=== PATIENT | female | born 1980 | race Caucasian/White ===

== ENCOUNTER → 2016-10-07 | Outpatient (REF) | payer OTHER | LOC: M LAB REF 12:06 | PROVIDERS: ATTEND Physician Assistant | DX: J02.9 Acute pharyngitis, unspecified (principal) ==

== ENCOUNTER → 2017-01-30 | Outpatient (CLI) | payer OTHER ==
[2017-01-30 08:54] LABS: BASO % 0.7 % (0.0-1.0); EOS # 0.1 K/mm3 (0.0-0.50); EOS % 2.1 % (0.0-3.0); LARGE UNSTAINED CELL # 0.1 K/mm3 (0.0-0.4); LARGE UNSTAINED CELL % 1.3 % (0.0-4.0); LYMPH # 1.5 K/mm3 (1.5-4.5); LYMPH % 28.8 % (24.0-44.0); MEAN CORPUSCULAR HEMOGLOBIN 29.7 pg (27.0-33.0); MEAN CORPUSCULAR HGB CONC 33.6 g/dl (32.0-36.5); MEAN CORPUSCULAR VOLUME 88.3 fl (80.0-96.0); MONO # 0.2 K/mm3 (0.0-0.8); MONO % 4.8 % (0.0-5.0); NEUTROPHILS # 3.1 K/mm3 (1.8-7.7); NEUTROPHILS % 62.3 % (36.0-66.0); PLATELET COUNT, AUTOMATED 325 k/mm3 (150-450); RED CELL DISTRIBUTION WIDTH 13.5 % (11.5-14.5); WHITE BLOOD COUNT 4.9 K/mm3 (4.0-10.0)
[2017-01-30 09:23] LABS: ALBUMIN 3.6 GM/DL (3.2-5.2); ALBUMIN/GLOBULIN RATIO 0.86 (1.00-1.93); ALKALINE PHOSPHATASE 79 U/L (45-117); ALT/SGPT 22 U/L (12-78); ANION GAP 3 MEQ/L (8-16); AST/SGOT 10 U/L (15-37); BILIRUBIN,TOTAL 0.4 MG/DL (0.2-1.0); BLOOD UREA NITROGEN 11 MG/DL (7-18); CALCIUM LEVEL 9.2 MG/DL (8.5-10.1); CARBON DIOXIDE LEVEL 31 MEQ/L (21-32); CHLORIDE LEVEL 106 MEQ/L (98-107); FREE T4 1.09 NG/DL (0.76-1.46); GLOMERULAR FILTRATION RATE > 60.0 (>60); GLUCOSE, FASTING 94 MG/DL (70-105); POTASSIUM SERUM 4.4 MEQ/L (3.5-5.1); SODIUM LEVEL 140 MEQ/L (136-145); TOTAL PROTEIN 7.8 GM/DL (6.4-8.2)
== END ==
LOC: M LAB 07:53
PROVIDERS: ATTEND Family Medicine
DX: R53.83 Other fatigue (principal); L65.9 Nonscarring hair loss, unspecified; E66.09 Other obesity due to excess calories

== ENCOUNTER → 2017-02-12 | Outpatient (CLI) | payer OTHER ==
[2017-02-12 14:12] LABS: LUTEINIZING HORMONE 4.5 mIU/mL
[2017-02-12 14:13] LABS: FOLLICLE STIMULATING HORMONE 3.1 mIU/mL
== END ==
LOC: M SMT 10:15
PROVIDERS: ATTEND Physician Assistant Medical
DX: L65.9 Nonscarring hair loss, unspecified (principal)

== ENCOUNTER → 2017-03-26 | Outpatient (CLI) | payer OTHER ==
--- NOTE | 2017-03-30 11:46 | SLEEPHOME ---
DATE OF STUDY: 03/26/2017 ORDERING PROVIDER: Kristina Moses home sleep testing was performed due to concern for the obstructive sleep apnea syndrome. 9 hours and 59 minutes of data were reviewed. There were 7 hours and 37 minutes marked as time in bed. During the interval marked time in bed, there were 28 respiratory events identified of 10 seconds in duration or greater for a respiratory event index of 3.7. The events were more frequent in the supine position. They were primarily obstructive in nature. Baseline pulse rate 64. Pulse rate ranged 47-102. Baseline saturation 93.8%. The lowest oxygen saturation 89%. Testing was performed in both the supine and nonsupine positions. IMPRESSION: Borderline home sleep testing with some respiratory events but a respiratory event index within normal limits at 3.7. RECOMMENDATION: Given the patient's symptoms, position retraining for avoidance of the supine posture is recommended. If symptoms persist, referral for formal sleep evaluation and in-laboratory nocturnal polysomnography would be a more sensitive means of identifying mild disease.
== END ==
LOC: M SLEEP HO 03-25 08:02
PROVIDERS: ATTEND Physician Assistant Medical
DX: R40.0 Somnolence (principal)

== ENCOUNTER → 2017-11-27 | Outpatient (REF) | payer OTHER ==
[2017-11-27 11:33] LABS: ALBUMIN 3.6 GM/DL (3.2-5.2); ALBUMIN/GLOBULIN RATIO 0.95 (1.00-1.93); ALKALINE PHOSPHATASE 74 U/L (45-117); ALT/SGPT 17 U/L (12-78); ANION GAP 4 MEQ/L (8-16); AST/SGOT 13 U/L (7-37); BILIRUBIN,TOTAL 0.3 MG/DL (0.2-1.0); BLOOD UREA NITROGEN 9 MG/DL (7-18); CALCIUM LEVEL 8.9 MG/DL (8.5-10.1); CARBON DIOXIDE LEVEL 29 MEQ/L (21-32); CHLORIDE LEVEL 108 MEQ/L (98-107); CREATININE FOR GFR 0.64 MG/DL (0.55-1.30); GLOMERULAR FILTRATION RATE > 60.0 (>60); GLUCOSE, FASTING 89 MG/DL (70-100); POTASSIUM SERUM 4.5 MEQ/L (3.5-5.1); SODIUM LEVEL 141 MEQ/L (136-145); TOTAL PROTEIN 7.4 GM/DL (6.4-8.2)
[2017-11-28 08:53] LABS: TOTAL 25(OH) VITAMIN D 37.8 NG/ML (30.0-100.0)
== END ==
LOC: M LABDRAW1 10:51
DX: E55.9 Vitamin D deficiency, unspecified (principal); L70.0 Acne vulgaris

== ENCOUNTER → 2017-12-12 | Outpatient (REF) ==
[2017-12-15 11:45] LABS: RUBELLA IgG QUALITATIVE IMMUNE (IMMUNE)
[2017-12-16 08:11] LABS: RUBEOLA IgG ANTIBODY <25.0 AU/mL (Immune >29.9)
== END ==
LOC: M LAB REF 13:00
DX: Z00.00 Encounter for general adult medical examination without abnormal findings (principal)

== ENCOUNTER → 2018-03-02 | Outpatient (CLI) | payer OTHER | LOC: M SMT 10:47 | DX: R05 Cough (principal) | CPT/HCPCS: 71046 ==

== ENCOUNTER 2019-01-07 09:31 | Emergency (ER) | payer OTHER ==
[~2019-01-07] VITALS: Ht 157.5 cm; Wt 86.4 kg
[2019-01-07] MEDS ORDERED: BUPR150T3 (09:41)
[2019-01-07] MEDS ORDERED: ESCI20TA (09:41)
--- NOTE | 2019-01-07 10:11 | REP ---
CT Head without contrast HISTORY: Paresthesias COMPARISON: None There is no intraparenchymal hemorrhage, acute infarct, mass or midline shift. The ventricular system is normal in appearance. There is no extra cerebral collection. There is no fracture. The visualized sinuses are clear. IMPRESSION: There is no intracranial lesion. Electronically Signed by Zoltan Bella MD 01/07/2019 10:02 A
[2019-01-07 10:21] LABS: BASO # 0.1 10^3/uL (0.0-0.2); BASO % 0.7 % (0.0-1.0); EOS # 0.1 10^3/uL (0.0-0.50); EOS % 1.5 % (0.0-3.0); HEMATOCRIT 42.4 % (36.0-47.0); HEMOGLOBIN 14.3 g/dl (12.0-15.5); LYMPH # 2.2 10^3/uL (1.5-4.5); LYMPH % 26.1 % (24.0-44.0); MEAN CORPUSCULAR HEMOGLOBIN 28.3 pg (27.0-33.0); MEAN CORPUSCULAR HGB CONC 33.7 g/dl (32.0-36.5); MEAN CORPUSCULAR VOLUME 83.8 fl (80.0-96.0); MONO # 0.6 10^3/uL (0.0-0.8); MONO % 7.5 % (0.0-5.0); NEUTROPHILS # 5.4 10^3/uL (1.8-7.7); PLATELET COUNT, AUTOMATED 423 10^3/uL (150-450); RED BLOOD COUNT 5.06 10^6/uL (4.00-5.40); WHITE BLOOD COUNT 8.4 10^3/uL (4.0-10.0)
--- NOTE | 2019-01-07 10:26 | REP ---
Chest one-view HISTORY: Infarction Comparison: 03/02/2018 The lungs are clear. The heart is normal in size. The pulmonary vasculature is normal in appearance. Impression: No acute disease. Electronically Signed by Zoltan Bella MD 01/07/2019 10:17 A
[2019-01-07] MEDS ORDERED: NS 1,000 ML IV SCH (10:30)
[2019-01-07 10:31] LABS: PROTHROMBIN TIME 13.3 SECONDS (12.1-14.4)
[2019-01-07 10:32] LABS: PARTIAL THROMBOPLASTIN TIME 28.1 SECONDS (25.4-37.6)
[2019-01-07 10:51] LABS: BLOOD UREA NITROGEN 6 MG/DL (7-18); CALCIUM LEVEL 9.5 MG/DL (8.5-10.1); CARBON DIOXIDE LEVEL 25 MEQ/L (21-32); CHLORIDE LEVEL 104 MEQ/L (98-107); CK-MB VALUE MASS < 1.0 NG/ML (<3.6); CPK CREATINE PHOSPHOKINASE 48 U/L (26-192); CREATININE FOR GFR 0.73 MG/DL (0.55-1.30); GLOMERULAR FILTRATION RATE > 60.0 (>60); GLUCOSE, FASTING 125 MG/DL (70-100); MB/CK RELATIVE INDEX 2.08 (< OR =4); POTASSIUM SERUM 4.5 MEQ/L (3.5-5.1); SODIUM LEVEL 137 MEQ/L (136-145); TROPONIN I < 0.02 NG/ML (< 0.10)
[2019-01-07] MEDS ORDERED: LORazepam 2 MG/ML VIAL (J2060) IV STA (10:53)
[2019-01-07 11:06] VITALS: BP 145/72
--- NOTE | 2019-01-08 05:50 | ECGEPIP ---
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
== END 2019-01-07 11:10 | disposition short-term general hospital (02) ==
LOC: M ED 09:31
DX: R20.9 Unspecified disturbances of skin sensation (principal); R47.9 Unspecified speech disturbances; R29.702 NIHSS score 2; R00.1 Bradycardia, unspecified; I45.10 Unspecified right bundle-branch block; R51 Headache; F41.9 Anxiety disorder, unspecified; F32.9 Major depressive disorder, single episode, unspecified; Z79.899 Other long term (current) drug therapy; F17.200 Nicotine dependence, unspecified, uncomplicated; Z88.0 Allergy status to penicillin
CPT/HCPCS: 70450; 71045; 80048; 82550; 82553; 84484; 85025; 85610; 85730; 86850; 86900; 86901; 93005; 93041; 94760; 96374; 99291; J2060

== ENCOUNTER 2019-01-12 09:17 | Inpatient (IN) | payer OTHER ==
[~2019-01-12] VITALS: Ht 157.5 cm; Wt 93.3 kg
[~2019-01-12 09:17] MED LIST: BUPR150T3; ESCI20TA
[2019-01-12 15:00] VITALS: BP 160/84
[2019-01-12] MEDS ORDERED: COLA100C5 PO (15:02)
[2019-01-12] MEDS ORDERED: ESCI20TA PO (15:02)
[2019-01-12] MEDS ORDERED: ACET1TAB55 PO (15:02)
[2019-01-12] MEDS ORDERED: GNP8.6TA PO (15:02)
[2019-01-12] MEDS ORDERED: ASPI81TA85 PO (15:02)
[2019-01-12] MEDS ORDERED: MIRA3350 PO (15:02)
[2019-01-12] MEDS ORDERED: D3 U5000 PO (15:02)
[2019-01-12] MEDS ORDERED: PLAV1TAB2 PO (15:02)
[2019-01-12] MEDS ORDERED: ENOX40IN3 SC (15:02)
[2019-01-12] MEDS ORDERED: ONDA4TAB6 PO (15:03)
[2019-01-12] MEDS ORDERED: MECL12.575 PO (15:03)
[2019-01-12] MEDS ORDERED: amLODIPine 5 MG TAB PO ONE (16:00)
[2019-01-12] MEDS ORDERED: BISACODYL 10 MG SUPP PR PRN (16:15)
[2019-01-12] MEDS ORDERED: ALBUTEROL 90 MCG/ACT 8GM HFA INHALER INH PRN (16:15)
[2019-01-12] MEDS ORDERED: MAALOX 30 ML SUSP *UDC PO PRN (16:15)
[2019-01-12] MEDS ORDERED: ACETAMINOPHEN TAB 650MG DOSE (2X325MG) PO PRN (16:15)
--- NOTE | 2019-01-12 17:04 | CR.PDOC ---
General Date of Consultation: Jan 12, 2019 Referring Provider: AARON MONTES MD Attending Physician: YADY GUSTAFSON MD Consultation REASON FOR CONSULTATION/CHIEF COMPLAINT: Medical management HISTORY OF PRESENT ILLNESS: Patient is a 38-year-old female, past medical history significant for hyperlipidemia, nicotine dependence, obesity, who sustained a stroke 6 days ago. Patient reports she was at her child's primary care physician's office when she had sudden onset of left-sided weakness, nausea, vomiting, left facial paresthesia, he environmental health physician, blurred vision. She was immediately rushed to the emergency room here way. CT without contrast was negative. Patient was sent to [facility] with CTA was completed. CT was negative and subsequently had an MRI which showed brainstem stroke. She did not receive TPA since she was out of TPA window. She was put on heparin, aspirin and Plavix and 2 days later states she was able to see out of her left eye and top. On assessment, she denies any symptoms other than left-sided weakness. She denies chills, fever, chest pain, shortness of breath. ALLERGIES: Penicillin HOME MEDICATIONS: Please see below. PAST MEDICAL HISTORY: 1. Obesity 2. Nicotine dependence PAST SURGICAL HISTORY: 1. Right oophorectomy 2. Tubal ligation FAMILY HISTORY: Patient denies any family history SOCIAL HISTORY: Smokes quarter pack cigarettes a day, denies alcohol or polysubstance abuse Marital status: with kids REVIEW OF SYSTEMS:A 10 point pertinent review of systems was completed, negative except as stated in the history of presenting illness. PHYSICAL EXAMINATION: GENERAL: Obese SKIN : Warm, dry intact HEENT: Atraumatic, normocephalic,, moist mucous membrane CARDIOVASCULAR: Regular rate and rhythm, S1S2, no JVD, no edema, distal pulses + and palpable RESP: CTAB, no accessory muscle use noted ABDOMEN: BS+ non distended non tender MS: no joint deformities NEURO: Alert and oriented x 3, CN2-12 grossly intact PSYCH: no anxiety or agitation, appropriate mood and affect. LABORATORY DATA: Please see below. ASSESSMENT/PLAN: 1. Acute left medulla CVA -Continue aspirin, Plavix, start on statin -Blood pressure is elevated without prior diagnosis of hypertension -Monitor blood pressure to target systolic range less than 140 2. Elevated blood pressure -Without prior diagnosis of hypertension -Start on low-dose DAYANARA inhibitor given recent acute CVA 3. Obesity -Has been discussed with patient. -Therapeutic lifestyle changes 4. Nicotine dependence -Patient has been counseled 5. DVT prophylaxis -Lovenox daily Vital Signs/I&O Vital Signs Date Time Temp Pulse Resp B/P (MAP) Pulse Ox O2 Delivery O2 Flow Rate FiO2 01/12/19 16:01 86 160/84 01/12/19 15:00 98.4 18 95 Allergies Coded Allergies: Penicillins (Verified Allergy, Unknown, hives, 01/07/19) Home Medications Scheduled Aspirin (Aspir 81) 81 Mg Tablet.dr, 81 MG PO DAILY, (Reported) Cholecalciferol (Vitamin D3) (Vitamin D3) 5,000 Unit Capsule, 5,000 UNIT PO DAILY, (Reported) Clopidogrel Bisulfate (Plavix) 75 Mg Tablet, 75 MG PO DAILY, (Reported) Docusate Sodium (Colace) 100 Mg Capsule, 100 MG PO BID, (Reported) Enoxaparin Sodium (Enoxaparin Sodium) 40 Mg/0.4 Ml Syringe, 40 MG SC DAILY, (Reported) Escitalopram Oxalate (Escitalopram Oxalate) 20 Mg Tablet, 20 MG PO QHS, (Reported) Polyethylene Glycol 3350 (Miralax) 119 Gm Powder, 34 GRAM PO DAILY, (Reported) dissolve in water Sennosides (Senna Lax) 8.6 Mg Tablet, 2 TAB PO DAILY, (Reported) Scheduled PRN Acetaminophen (Acetaminophen) 325 Mg Tablet, 650 MG PO Q6H PRN for PAIN, (Reported) Meclizine HCl (Meclizine HCl) 12.5 Mg Tablet, 12.5 MG PO TID PRN for DIZZINESS, (Reported) Ondansetron (Ondansetron Odt) 4 Mg Tab.rapdis, 4 MG PO Q8H PRN for NAUSEA, (Reported) MALINI FRYE Jan 12, 2019 17:04
[2019-01-12 20:00] VITALS: BP 133/62
[2019-01-12] MEDS: MECLIZINE 12.5 MG TAB PO SCH (20:08)
[2019-01-12] MEDS: SENNA 8.6 MG TAB (SENOKOT) PO SCH (20:08)
[2019-01-12] MEDS: GABAPENTIN 100 MG CAP PO SCH (20:09)
[2019-01-12] MEDS: DOCUSATE SODIUM 100 MG CAP PO SCH (20:09)
[2019-01-12] MEDS: ATORVASTATIN 20 MG TAB PO SCH (20:09)
[2019-01-13 06:00] VITALS: BP 120/68
[2019-01-13 07:00] LABS: BASO # 0.1 10^3/uL (0.0-0.2); BASO % 0.7 % (0.0-1.0); EOS # 0.2 10^3/uL (0.0-0.50); EOS % 2.7 % (0.0-3.0); HEMATOCRIT 40.9 % (36.0-47.0); HEMOGLOBIN 13.4 g/dl (12.0-15.5); LYMPH # 2.9 10^3/uL (1.5-4.5); LYMPH % 41.6 % (24.0-44.0); MEAN CORPUSCULAR HEMOGLOBIN 28.5 pg (27.0-33.0); MEAN CORPUSCULAR HGB CONC 32.8 g/dl (32.0-36.5); MEAN CORPUSCULAR VOLUME 86.8 fl (80.0-96.0); MONO # 0.6 10^3/uL (0.0-0.8); MONO % 8.4 % (0.0-5.0); NEUTROPHILS # 3.3 10^3/uL (1.8-7.7); NEUTROPHILS % 46.5 % (36.0-66.0); PLATELET COUNT, AUTOMATED 325 10^3/uL (150-450); RED BLOOD COUNT 4.71 10^6/uL (4.00-5.40)
[2019-01-13 07:23] LABS: ALBUMIN 2.9 GM/DL (3.2-5.2); ALT/SGPT 34 U/L (12-78); BILIRUBIN,TOTAL 0.2 MG/DL (0.2-1.0); BLOOD UREA NITROGEN 8 MG/DL (7-18); CALCIUM LEVEL 8.9 MG/DL (8.5-10.1); CARBON DIOXIDE LEVEL 30 MEQ/L (21-32); CHLORIDE LEVEL 107 MEQ/L (98-107); CREATININE FOR GFR 0.74 MG/DL (0.55-1.30); GLOMERULAR FILTRATION RATE > 60.0 (>60); GLUCOSE, FASTING 97 MG/DL (70-100); POTASSIUM SERUM 4.3 MEQ/L (3.5-5.1); SODIUM LEVEL 142 MEQ/L (136-145); TOTAL PROTEIN 6.4 GM/DL (6.4-8.2)
[2019-01-13] MEDS: MECLIZINE 12.5 MG TAB PO SCH ×3 (08:32→20:59)
[2019-01-13] MEDS: ENOXAPARIN 40 MG/0.4 ML SYRINGE (J1650) SC SCH (08:32)
[2019-01-13] MEDS: FERROUS GLUCONATE 324 MG TAB PO SCH (08:33)
[2019-01-13] MEDS: ASPIRIN 81 MG CHEW TABLET PO SCH (08:33)
[2019-01-13] MEDS: LISINOPRIL 5 MG TAB PO SCH (08:33)
[2019-01-13] MEDS: CLOPIDOGREL 75 MG TAB PO SCH ×2 (08:33→10:03)
[2019-01-13] MEDS: DOCUSATE SODIUM 100 MG CAP PO SCH ×2 (08:33→20:59)
[2019-01-13] MEDS: PANTOPRAZOLE 40MG TAB (PROTONIX) PO SCH (08:33)
[2019-01-13] MEDS: VITAMIN D 1,000 INTERNATIONAL UNITS TABLET PO SCH (08:33)
[2019-01-13] MEDS: ESCITALOPRAM OXALATE 10 MG TAB (LEXAPRO) PO SCH (08:33)
[2019-01-13] MEDS: LIDOCAINE 5% (LIDODERM) PATCH TD SCH (08:34)
[2019-01-13 14:00] VITALS: BP 134/81
--- NOTE | 2019-01-13 15:09 | HPEPDOC ---
Sign Builder Note DATE OF ADMISSION: Jan 12, 2019 at 14:20 SOURCE OF ADMISSION INFORMATION: [facility] records and patient CHIEF COMPLAINT: left lateral medullary stroke HISTORY OF PRESENT ILLNESS: 38F with no significant pmh who developed left sided paresthesias, dysarthria, vertigo, and diplopia on 01/07/19 presented initially to [facility] ED where CTH was negative and she was transferred to [facility] for further work up. Upon arrival she was noted to have left-martin gaze, dysmetria, hiccupping, and paresthesias of the LLE. CTH was negative and MRI on 01/08/19 was read as negative with neurology notes remarking on varying areas of stroke, but I personally verbally confirmed with neuro-radiology at [facility] what there was one lesion in the left lateral medullary that was not PICA in origin, but a small perforating branch. ECHO confirmed a PFO and Dopplers were negative for DVT. She was found to have elevated cholesterol levels and hyper coagulopathy work-up was ordered. She was started on Meclizine for dizziness, Aspirin and Plavix to be taken together for 3 weeks total then to continue on with just Aspirin, and a statin. She was found to have gait and ADL impairments below her baseline level of function and deemed medically appropriate for discharge to ARU. Upon arrival patient reports persistent patchy numbness and tingling in both her left upper and lower extremity. She denies dysphagia and reports her dysarthria improved. She reports at least 3 months of neck pain and headaches she feels start in the back of her head and neck and radiate to her eyes. REVIEW OF SYSTEMS: The following is a completed review of systems and has been reviewed. Review of systems otherwise unremarkable. PAIN: Patient self reports neck pain EYES: Negative for vision loss or double vision EARS, NOSE, & THROAT: denies dysphagia CARDIOVASCULAR: denies chest pain or shortness of breath PULMONARY:Negative. Denies shortness of breath GASTROINTESTINAL: denies diarrhea/constipation GENITOURINARY: Negative for dysuria MUSCULOSKELETAL: +neck pain NEUROLOGICAL: left sided ptosis and miosis, paresthesias in both left UE and LE HEMATOLOGICAL: Negative SKIN: intact PSYCHIATRIC: +anxious All other review of systems found to be negative. PAST MEDICAL HISTORY: as per HPI PAST SURGICAL HISTORY: oophorectomy for teratoma removal ALLERGIES: Please see below. MEDICATIONS: Please see below. SOCIAL HISTORY: Denies illicit drug use, occasional social smoker, occasional ETOH, lives with children and DIET: low salt PHYSICAL EXAMINATION: VITAL SIGNS: Please see below. GENERAL: Pleasant and cooperative. No acute distress. HEENT: PERRL. Extraocular movements intact. Clear conjunctiva, no nystagmus, +left ptosis and miosis CARDIOVASCULAR: Regular rate and rhythm. No murmurs, rubs, or gallops LUNGS: Clear to auscultation bilaterally. No wheezes. No rhonchi ABDOMEN: Soft, nontender, nondistended. Positive bowel sounds. Normal active bowel sounds NEUROLOGICAL: Alert and oriented times three. Cranial nerves II through XII grossly intact. Sensation grossly intact except diminished to light touch left face in CNV1-3 distribution, left D1 and tip of D2, left lateral upper arm, left anterior thigh -no dysarthria, no aphasia -gait not examined EXTREMITIES: 5\5 strength bilateral upper extremities (no pronator drift) 5\5 strength right lower extremity 5/5 strength in left lower extremity +TTP cervical paraspinals, +trigger point with ocular radiation with palpation of bilateral superior nuchal ridge SKIN: intact IMAGING: Imaging documentation personally reviewed by record FUNCTIONAL STATUS: Premorbid: Independent with all activities of daily life as well as mobility On Admission: Min assist for ambulation with RW, toileting min assist, lower body dressing min assist GOALS: Mod-I with cane or without AD ambulating, stairs, fall recover, dynamic balance, Mod-I for toileting, dressing, bathing, medical optimization, assess for DMEs, caregiver training, modifiable risk factor education ASSESSMENT:38-year-old F with no significant pmh who presents status post left lateral medullary infarct. PLAN: 1. Rehab: PT, OT, assess for DMEs, JUSTICE COURT JUDGE for cognition and swallow eval 2. 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 Cardio: HLD and HTN- c/u meds, medicine consulted to follow 4. Resp: encourage incentive spirometry 5. GI ppx: protonix, optimize bowel meds 6. DVT ppx: lovenox 7. : monitor PVRs 8. Psych: c/u Lexapro for anxiety 9. Dispo: TBD POST ADMISSION PHYSICIAN EVALUATION: Medical and functional status: Description of medical status, medical assessment: As above. Rehabilitation diagnosis and current and prior cold morbid medical conditions as above. Risk of complications and plans to mitigate them as above. Description of functional status current status is as above. Prior status as above. Status compared to preadmission: There are no clinically significant differences between the patient's current status and the information described on the pread mission screening document. Treatment plan anticipated: Treatment plan is as described above. Required disciplines including physical therapy, occupational therapy, others as noted above Intensity of services: 3 hours a day, 6 days a week. Special considerations: There are no specific special or safety considerations that would likely preclude immediate implementation of an intensive rehabilitation program or subsequently influence the plan of care. ATTESTATION: Considering all the information above, it is my best judgment that this patient requires intensive rehabilitation therapy as described above and an inpatient hospital environment due to the complexity of nursing, medical, and rehabilitation needs required by the patient. Furthermore, this patient can reasonably be expected to participate in an benefit from an inpatient rehabilitation stay with an interdisciplinary team approach to the delivery of rehabilitation care under the direction and supervision of rehabilitation physician PROGNOSIS: Excellent ESTIMATED LENGTH OF STAY:8-10 days. PROJECTED DISCHARGE DESTINATION: Home with family support and any durable medical equipment required to increase functional safety and mobility TIME SPENT COUNSELING AND COORDINATING INITIAL CARE: Greater than 70 minutes. Vital Signs Vital Sign - Last 24 Hours 01/12/19 01/12/19 01/12/19 01/13/19 15:00 16:01 20:00 06:00 Temp 98.4 98.9 97.4 Pulse 86 86 71 57 Resp 18 17 17 B/P (MAP) 160/84 (109) 160/84 133/62 (85) 120/68 (85) Pulse Ox 95 96 96 01/13/19 08:33 B/P (MAP) 120/68 Laboratory Data CBC/BMP Laboratory Tests 01/13/19 06:34 Red Blood Count 4.71, Mean Corpuscular Volume 86.8, Mean Corpuscular Hemoglobin 28.5, Mean Corpuscular Hemoglobin Concent 32.8, Red Cell Distribution Width 14.6 H, Neutrophils (%) (Auto) 46.5, Lymphocytes (%) (Auto) 41.6, Monocytes (%) (Auto) 8.4 H, Eosinophils (%) (Auto) 2.7, Basophils (%) (Auto) 0.7, Neutrophils # (Auto) 3.3, Lymphocytes # (Auto) 2.9, Monocytes # (Auto) 0.6, Eosinophils # (Auto) 0.2, Basophils # (Auto) 0.1, Calcium Level 8.9, Aspartate Amino Transf (AST/SGOT) 13, Alanine Aminotransferase (ALT/SGPT) 34, Alkaline Phosphatase 64, Total Bilirubin 0.2, Total Protein 6.4, Albumin 2.9 L Labs 24H Laboratory Tests 2 01/13/19 06:34: Immature Granulocyte % (Auto) 0.1, White Blood Count 7.0, Red Blood Count 4.71, Hemoglobin 13.4, Hematocrit 40.9, Mean Corpuscular Volume 86.8, Mean Corpuscular Hemoglobin 28.5, Mean Corpuscular Hemoglobin Concent 32.8, Red Cell Distribution Width 14.6H, Platelet Count 325, Neutrophils (%) (Auto) 46.5, Lymphocytes (%) (Auto) 41.6, Monocytes (%) (Auto) 8.4H, Eosinophils (%) (Auto) 2.7, Basophils (%) (Auto) 0.7, Neutrophils # (Auto) 3.3, Lymphocytes # (Auto) 2.9, Monocytes # (Auto) 0.6, Eosinophils # (Auto) 0.2, Basophils # (Auto) 0.1, Nucleated Red Blood Cells % (auto) 0.0, Anion Gap 5L, Glomerular Filtration Rate > 60.0, Blood Urea Nitrogen 8, Creatinine 0.74, Sodium Level 142, Potassium Level 4.3, Chloride Level 107, Carbon Dioxide Level 30, Calcium Level 8.9, Aspartate Amino Transf (AST/SGOT) 13, Alanine Aminotransferase (ALT/SGPT) 34, Alkaline Phosphatase 64, Total Bilirubin 0.2, Total Protein 6.4, Albumin 2.9L, Albumin/Globulin Ratio 0.83L Home Medications Scheduled Aspirin (Aspir 81) 81 Mg Tablet.dr, 81 MG PO DAILY, (Reported) Cholecalciferol (Vitamin D3) (Vitamin D3) 5,000 Unit Capsule, 5,000 UNIT PO DAILY, (Reported) Clopidogrel Bisulfate (Plavix) 75 Mg Tablet, 75 MG PO DAILY, (Reported) Docusate Sodium (Colace) 100 Mg Capsule, 100 MG PO BID, (Reported) Enoxaparin Sodium (Enoxaparin Sodium) 40 Mg/0.4 Ml Syringe, 40 MG SC DAILY, (Reported) Escitalopram Oxalate (Escitalopram Oxalate) 20 Mg Tablet, 20 MG PO QHS, (Reported) Polyethylene Glycol 3350 (Miralax) 119 Gm Powder, 34 GRAM PO DAILY, (Reported) dissolve in water Sennosides (Senna Lax) 8.6 Mg Tablet, 2 TAB PO DAILY, (Reported) Scheduled PRN Acetaminophen (Acetaminophen) 325 Mg Tablet, 650 MG PO Q6H PRN for PAIN, ( Reported) Meclizine HCl (Meclizine HCl) 12.5 Mg Tablet, 12.5 MG PO TID PRN for DIZZINESS, (Reported) Ondansetron (Ondansetron Odt) 4 Mg Tab.rapdis, 4 MG PO Q8H PRN for NAUSEA, (Reported) Allergies Coded Allergies: Penicillins (Verified Allergy, Unknown, hives, 01/07/19) A-FIB/CHADSVASC A-FIB History Current/History of A-Fib/PAF?: No AARON MONTES MD Jan 13, 2019 15:09
--- NOTE | 2019-01-13 15:09 | IPNPDOC ---
PM&R Progress Note DATE OF SERVICE: Jan 13, 2019 Deputy Brand Inspector Progress Note Subjective: Patient reporting she is feeling well, denies having a headache or dizziness, and is eager to return hoe as soon as possible. PHYSICAL EXAMINATION: VITAL SIGNS: Please see below. GENERAL: Pleasant and cooperative. No acute distress. HEENT: PERRL. Extraocular movements intact. Clear conjunctiva, no nystagmus, +left ptosis and miosis CARDIOVASCULAR: Regular rate and rhythm. No murmurs, rubs, or gallops LUNGS: Clear to auscultation bilaterally. No wheezes. No rhonchi ABDOMEN: Soft, nontender, nondistended. Positive bowel sounds. Normal active bowel sounds NEUROLOGICAL: Alert and oriented times three. Cranial nerves II through XII grossly intact. Sensation grossly intact except diminished to light touch left face in CNV1-3 distribution, left D1 and tip of D2, left lateral upper arm, left anterior thigh -no dysarthria, no aphasia -gait decreased step length, mildly ataxic EXTREMITIES: 5\5 strength bilateral upper extremities (no pronator drift) 5\5 strength right lower extremity 5/5 strength in left lower extremity +TTP cervical paraspinals, +trigger point with ocular radiation with palpation of bilateral superior nuchal ridge SKIN: intact ASSESSMENT:38-year-old F with no significant pmh who presents status post left lateral medullary infarct. PLAN: 1. Rehab: PT, OT, assess for DMEs, COMBINATION MACHINE TOOL OPERATOR for cognition and swallow eval- ambulating well with quad-based cane and needing some assistance without an AD for unsteadiness 2. 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 Cardio: HLD and HTN- c/u meds, medicine consulted to follow 4. Resp: encourage incentive spirometry 5. GI ppx: protonix, optimize bowel meds 6. DVT ppx: lovenox 7. : monitor PVRs 8. Psych: c/u Lexapro for anxiety 9. Dispo: 01/18/19, quickly progressing towards goals Allergies Coded Allergies: Penicillins (Verified Allergy, Unknown, hives, 01/07/19) Vital Signs Vital Signs Date Time Temp Pulse Resp B/P (MAP) Pulse Ox O2 Delivery O2 Flow Rate FiO2 01/13/19 08:33 120/68 01/13/19 06:00 97.4 57 17 96 Laboratory Data CBC/BMP Laboratory Tests 01/13/19 06:34 Red Blood Count 4.71, Mean Corpuscular Volume 86.8, Mean Corpuscular Hemoglobin 28.5, Mean Corpuscular Hemoglobin Concent 32.8, Red Cell Distribution Width 14.6 H, Neutrophils (%) (Auto) 46.5, Lymphocytes (%) (Auto) 41.6, Monocytes (%) (Auto) 8.4 H, Eosinophils (%) (Auto) 2.7, Basophils (%) (Auto) 0.7, Neutrophils # (Auto) 3.3, Lymphocytes # (Auto) 2.9, Monocytes # (Auto) 0.6, Eosinophils # (Auto) 0.2, Basophils # (Auto) 0.1, Calcium Level 8.9, Aspartate Amino Transf (AST/SGOT) 13, Alanine Aminotransferase (ALT/SGPT) 34, Alkaline Phosphatase 64, Total Bilirubin 0.2, Total Protein 6.4, Albumin 2.9 L Labs 24H Laboratory Tests 2 01/13/19 06:34: Immature Granulocyte % (Auto) 0.1, White Blood Count 7.0, Red Blood Count 4.71, Hemoglobin 13.4, Hematocrit 40.9, Mean Corpuscular Volume 86.8, Mean Corpuscular Hemoglobin 28.5, Mean Corpuscular Hemoglobin Concent 32.8, Red Cell Distribution Width 14.6H, Platelet Count 325, Neutrophils (%) (Auto) 46.5, Lymphocytes (%) (Auto) 41.6, Monocytes (%) (Auto) 8.4H, Eosinophils (%) (Auto) 2.7, Basophils (%) (Auto) 0.7, Neutrophils # (Auto) 3.3, Lymphocytes # (Auto) 2.9, Monocytes # (Auto) 0.6, Eosinophils # (Auto) 0.2, Basophils # (Auto) 0.1, Nucleated Red Blood Cells % (auto) 0.0, Anion Gap 5L, Glomerular Filtration Rate > 60.0, Blood Urea Nitrogen 8, Creatinine 0.74, Sodium Level 142, Potassium Level 4.3, Chloride Level 107, Carbon Dioxide Level 30, Calcium Level 8.9, Aspartate Amino Transf (AST/SGOT) 13, Alanine Aminotransferase (ALT/SGPT) 34, Alkaline Phosphatase 64, Total Bilirubin 0.2, Total Protein 6.4, Albumin 2.9L, Albumin/Globulin Ratio 0.83L Current Medications Current Medications Current Medications Acetaminophen (Tylenol Tab) 650 mg Q4HP PRN PO MILD PAIN (PS 1-4); Start 01/12/19 at 16:15 Al Hydrox/Mg Hydrox/Simethicone (Mylanta) 30 ml Q4HP PRN PO DYSPEPSIA; Start 01/12/19 at 16:15 Albuterol Sulfate (Proventil, Ventolin Hfa) 2 puff Q4HP PRN INH SHORTNESS OF BREATH; Start 01/12/19 at 16:15 Amlodipine Besylate (Norvasc) 2.5 mg DAILY PO ; Start 01/13/19 at 09:00; Stop 01/13/19 at 09:00; Status DC Aspirin (Aspirin Chewable) 81 mg DAILY PO Last administered on 01/13/19at 08:33; Start 01/13/19 at 09:00 Atorvastatin Calcium (Lipitor) 80 mg QHS PO Last administered on 01/12/19at 20:09; Start 01/12/19 at 21:00 Bisacodyl (Dulcolax Suppository) [address] CONSTIPATION; Start 01/12/19 at 16:15 Clopidogrel Bisulfate (PLAVix) 75 mg DAILY@1000 PO Last administered on 01/13/19at 10:03; Start 01/13/19 at 10:00 Docusate Sodium (Colace) 100 mg BID PO Last administered on 01/13/19at 08:33; Start 01/12/19 at 21:00 Enoxaparin Sodium (Lovenox) 40 mg DAILY SC Last administered on 01/13/19at 08:32; Start 01/13/19 at 09:00 Escitalopram Oxalate (Lexapro) 20 mg DAILY PO Last administered on 01/13/19 08:33; Start 01/13/19 at 09:00 Ferrous Gluconate (Fergon) 324 mg DAILY PO Last administered on 01/13/19 08:33; Start 01/13/19 at 09:00 Gabapentin (Neurontin) 200 mg QHS PO Last administered on 01/12/19 20:09; Start 01/12/19 at 21:00 Home Med (Med Rec Complete!) ASDIRECTED XX ; Start 01/12/19 at 15:15; Stop 01/12/19 at 15:15; Status DC Lidocaine (Lidoderm Patch) 1 patch DAILY TD Last administered on 01/13/19 08:34; Start 01/13/19 at 09:00 Lisinopril (Prinivil) 5 mg DAILY PO Last administered on 01/13/19 08:33; Start 01/13/19 at 09:00 Meclizine HCl (Antivert) 12.5 mg TID PO Last administered on 01/13/19 08:32; Start 01/12/19 at 21:00 Non-Formulary Medication ( See Comment Field Below ) REMOVE LIDODERM PATCH DAILY@21 XX ; Start 01/13/19 at 21:00 Pantoprazole Sodium (Protonix) 40 mg DAILY PO Last administered on 01/13/19 08:33; Start 01/13/19 at 09:00 Senna (Senokot) 1 tab QHS PO Last administered on 01/12/19 20:08; Start 01/12/19 at 21:00 Vitamin D (Vitamin D) 5,000 units DAILY PO Last administered on 01/13/19 08:33; Start 01/13/19 at 09:00 AARON MONTES MD Jan 13, 2019 15:09
--- NOTE | 2019-01-13 16:36 | NUR ---
Pt tolerates regular diet & thin liquids w/o s/sx aspiration. Recommend continue this diet as tolerated. Pt educated on HEP for oral motor exercises w/ mirror use to correct minimal tongue deviation to right. Addendum: 01/13/19 at 1637 by STEVE ASHBY [facility] Amended: Links added.
--- NOTE | 2019-01-13 16:38 | NUR ---
Pt cognitive skills fall wnl. No cognitive tx recommended at this time. Addendum: 01/13/19 at 1638 by STEVE AHSBY [facility] Amended: Links added.
[2019-01-13 20:00] VITALS: BP 118/61
[2019-01-13] MEDS: GABAPENTIN 100 MG CAP PO SCH (20:57)
[2019-01-13] MEDS: ATORVASTATIN 20 MG TAB PO SCH (20:57)
[2019-01-13] MEDS: SENNA 8.6 MG TAB (SENOKOT) PO SCH (20:59)
[2019-01-13] MEDS: **NOTE PATIENT COMMENT** MISC XX SCH (20:59)
[2019-01-14 05:27] VITALS: BP 103/52
[2019-01-14] MEDS: LISINOPRIL 5 MG TAB PO SCH (09:00)
[2019-01-14] MEDS: LIDOCAINE 5% (LIDODERM) PATCH TD SCH (09:42)
[2019-01-14] MEDS: VITAMIN D 1,000 INTERNATIONAL UNITS TABLET PO SCH (09:42)
[2019-01-14] MEDS: DOCUSATE SODIUM 100 MG CAP PO SCH ×2 (09:43→21:46)
[2019-01-14] MEDS: ESCITALOPRAM OXALATE 10 MG TAB (LEXAPRO) PO SCH (09:43)
[2019-01-14] MEDS: CLOPIDOGREL 75 MG TAB PO SCH (09:43)
[2019-01-14] MEDS: ASPIRIN 81 MG CHEW TABLET PO SCH (09:43)
[2019-01-14] MEDS: PANTOPRAZOLE 40MG TAB (PROTONIX) PO SCH (09:43)
[2019-01-14] MEDS: FERROUS GLUCONATE 324 MG TAB PO SCH (09:43)
[2019-01-14] MEDS: ENOXAPARIN 40 MG/0.4 ML SYRINGE (J1650) SC SCH (09:43)
[2019-01-14] MEDS: MECLIZINE 12.5 MG TAB PO SCH ×2 (09:43→21:46)
[2019-01-14] MEDS ORDERED: CLOP75TA2 PO (10:21)
[2019-01-14] MEDS ORDERED: LISI-542 PO (10:21)
[2019-01-14] MEDS ORDERED: ASPI81CH8 PO (10:21)
[2019-01-14] MEDS ORDERED: MECL12.575 PO (10:21)
[2019-01-14] MEDS ORDERED: ATOR1TAB21 PO (10:21)
[2019-01-14] MEDS ORDERED: PANT40TA3 PO (10:21)
[2019-01-14] MEDS ORDERED: ESCI10TA2 PO (10:21)
[2019-01-14] MEDS ORDERED: GABA-1171 PO (10:21)
--- NOTE | 2019-01-14 11:12 | IPNPDOC ---
Subjective Date Seen The patient was seen on 01/14/19. Subjective Chief Complaint/HPI No issues overnight. Vision almost completely recovered. Objective Physical Examination General Exam: Positive: Alert, Cooperative, No Acute Distress Eye Exam: Positive: Conjunctiva & lids normal ENT Exam: Positive: Atraumatic, Mucous membr. moist/pink, Pharynx Normal Neck Exam: Positive: Supple; Negative: JVD, thyromegaly Chest Exam: Positive: Clear to auscultation, Normal air movement Heart Exam: Positive: Rate Normal, Regular Rhythm, Normal S1, Normal S2; Negative: Murmurs, Rubs Abdomen Exam: Positive: Normal bowel sounds, Soft; Negative: Tenderness, Hepatospenomegaly Extremity Exam: Positive: Normal pulses; Negative: Clubbing, Cyanosis, Edema Neuro Exam: Positive: Normal Speech, Normal Tone, Other (4/5 strength on the left upper and lower extremity, 5/5 on the right. ) Assessment /Plan Assessment Acute left medulla CVA -Continue aspirin, Plavix, start on statin -Blood pressure is elevated without prior diagnosis of hypertension -Monitor blood pressure to target systolic range less than 140 Elevated blood pressure -Without prior diagnosis of hypertension -Start on low-dose DAYANARA inhibitor given recent acute CVA Obesity -Has been discussed with patient. -Therapeutic lifestyle changes Nicotine dependence -Patient has been counseled DVT prophylaxis -Lovenox daily VS, I&O, 24H, Fishbone Vital Signs/I&O Vital Signs Date Time Temp Pulse Resp B/P (MAP) Pulse Ox O2 Delivery O2 Flow Rate FiO2 01/14/19 09:00 103/52 01/14/19 05:27 97.1 53 18 97 I&O- Last 24 Hours up to 6 AM 01/14/19 06:00 Intake Total 1080 ml Output Total 0 ml Balance 1080 ml JOSE KENT MD Jan 14, 2019 11:12
[2019-01-14 14:00] VITALS: BP 113/59
[2019-01-14 15:36] VITALS: BP 103/52
--- NOTE | 2019-01-14 16:59 | IPNPDOC ---
PM&R Progress Note DATE OF SERVICE: Jan 14, 2019 [employer] Progress Note Subjective: Patient seen walking in therapy stating she feels well and believes she is getting more steady on her feet. PHYSICAL EXAMINATION: VITAL SIGNS: Please see below. GENERAL: Pleasant and cooperative. No acute distress. HEENT: PERRL. Extraocular movements intact. Clear conjunctiva, no nystagmus, +left ptosis and miosis CARDIOVASCULAR: Regular rate and rhythm. No murmurs, rubs, or gallops LUNGS: Clear to auscultation bilaterally. No wheezes. No rhonchi ABDOMEN: Soft, nontender, nondistended. Positive bowel sounds. Normal active bowel sounds NEUROLOGICAL: Alert and oriented times three. Cranial nerves II through XII grossly intact. Sensation grossly intact except diminished to light touch left face in CNV1-3 distribution, left D1 and tip of D2, left lateral upper arm, left anterior thigh -no dysarthria, no aphasia -gait decreased step length, mildly ataxic EXTREMITIES: 5\5 strength bilateral upper extremities (no pronator drift) 5\5 strength right lower extremity 5/5 strength in left lower extremity +TTP cervical paraspinals, +trigger point with ocular radiation with palpation of bilateral superior nuchal ridge SKIN: intact ASSESSMENT:38-year-old F with no significant pmh who presents status post left lateral medullary infarct. PLAN: 1. Rehab: PT, OT, assess for DMEs, FUEL TANK SEALER AND TESTER for cognition and swallow eval- ambulating well with quad-based cane and needing some assistance without an AD for unsteadiness, goal will be MOd with cane prior to discharge 2. 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 Cardio: HLD and HTN- c/u meds, medicine consulted to follow 4. Resp: encourage incentive spirometry 5. GI ppx: protonix, optimize bowel meds 6. DVT ppx: lovenox 7. : monitor PVRs 8. Psych: c/u Lexapro for anxiety 9. Dispo: 01/18/19, quickly progressing towards goals Allergies Coded Allergies: Penicillins (Verified Allergy, Unknown, hives, 01/07/19) Vital Signs Vital Signs Date Time Temp Pulse Resp B/P (MAP) Pulse Ox O2 Delivery O2 Flow Rate FiO2 01/14/19 15:36 97.1 53 18 103/52 97 Current Medications Current Medications Current Medications Acetaminophen (Tylenol Tab) 650 mg Q4HP PRN PO MILD PAIN (PS 1-4); Start 01/12/19 at 16:15 Al Hydrox/Mg Hydrox/Simethicone (Mylanta) 30 ml Q4HP PRN PO DYSPEPSIA; Start 01/12/19 at 16:15 Albuterol Sulfate (Proventil, Ventolin Hfa) 2 puff Q4HP PRN INH SHORTNESS OF BREATH; Start 01/12/19 at 16:15 Amlodipine Besylate (Norvasc) 2.5 mg DAILY PO ; Start 01/13/19 at 09:00; Stop 01/13/19 at 09:00; Status DC Aspirin (Aspirin Chewable) 81 mg DAILY PO Last administered on 01/14/19 09:43; Start 01/13/19 at 09:00 Atorvastatin Calcium (Lipitor) 80 mg QHS PO Last administered on 01/13/19at 20:57; Start 01/12/19 at 21:00 Bisacodyl (Dulcolax Suppository) 10 mg DAILYPRN PRN [place] CONSTIPATION; Start 01/12 at 16:15 Clopidogrel Bisulfate (PLAVix) 75 mg DAILY@1000 PO Last administered on 01/14/19at 09:43; Start 01/13/19 at 10:00 Docusate Sodium (Colace) 100 mg BID PO Last administered on 01/14/19at 09:43; Start 01/12/19 at 21:00 Enoxaparin Sodium (Lovenox) 40 mg DAILY SC Last administered on 01/14/19at 09:43; Start 01/13/19 at 09:00 Escitalopram Oxalate (Lexapro) 20 mg DAILY PO Last administered on 01/14/19 09:43; Start 01/13/19 at 09:00 Ferrous Gluconate (Fergon) 324 mg DAILY PO Last administered on 01/14/19 09:43; Start 01/13/19 at 09:00 Gabapentin (Neurontin) 200 mg QHS PO Last administered on 01/13/19 20:57; Start 01/12/19 at 21:00 Home Med (Med Rec Complete!) ASDIRECTED XX ; Start 01/12/19 at 15:15; Stop 01/12/19 at 15:15; Status DC Lidocaine (Lidoderm Patch) 1 patch DAILY TD Last administered on 01/14/19 09:42; Start 01/13/19 at 09:00 Lisinopril (Prinivil) 5 mg DAILY PO Last administered on 01/13/19 08:33; Start 01/13/19 at 09:00 Meclizine HCl (Antivert) 12.5 mg BID PO ; Start 01/14/19 at 21:00 Meclizine HCl (Antivert) 12.5 mg TID PO Last administered on 01/14/19 09:43; Start 01/12/19 at 21:00; Stop 01/14/19 at 12:57; Status DC Non-Formulary Medication ( See Comment Field Below ) REMOVE LIDODERM PATCH DAILY@21 XX Last administered on 01/13/19 20:59; Start 01/13/19 at 21:00 Pantoprazole Sodium (Protonix) 40 mg DAILY PO Last administered on 01/14/19 09:43; Start 01/13/19 at 09:00 Senna (Senokot) 1 tab QHS PO Last administered on 01/13/19 20:59; Start 01/12/19 at 21:00 Vitamin D (Vitamin D) 5,000 units DAILY PO Last administered on 01/14/19 09:42; Start 01/13/19 at 09:00 AARON MONTES MD Jan 14, 2019 16:59
[2019-01-14 20:00] VITALS: BP 137/64
[2019-01-14] MEDS: **NOTE PATIENT COMMENT** MISC XX SCH (21:00)
[2019-01-14] MEDS: GABAPENTIN 100 MG CAP PO SCH (21:46)
[2019-01-14] MEDS: SENNA 8.6 MG TAB (SENOKOT) PO SCH (21:46)
[2019-01-14] MEDS: ATORVASTATIN 20 MG TAB PO SCH (21:46)
[2019-01-15 05:53] VITALS: BP 121/67
[2019-01-15 07:03] LABS: HEMATOCRIT 39.7 % (36.0-47.0); HEMOGLOBIN 13.1 g/dl (12.0-15.5); MEAN CORPUSCULAR HEMOGLOBIN 29.2 pg (27.0-33.0); MEAN CORPUSCULAR VOLUME 88.6 fl (80.0-96.0); PLATELET COUNT, AUTOMATED 283 10^3/uL (150-450); RED BLOOD COUNT 4.48 10^6/uL (4.00-5.40); WHITE BLOOD COUNT 7.2 10^3/uL (4.0-10.0)
[2019-01-15] MEDS: LIDOCAINE 5% (LIDODERM) PATCH TD SCH (08:55)
[2019-01-15] MEDS: ENOXAPARIN 40 MG/0.4 ML SYRINGE (J1650) SC SCH (08:57)
[2019-01-15] MEDS: MECLIZINE 12.5 MG TAB PO SCH ×2 (08:57→20:10)
[2019-01-15] MEDS: FERROUS GLUCONATE 324 MG TAB PO SCH (08:57)
[2019-01-15] MEDS: PANTOPRAZOLE 40MG TAB (PROTONIX) PO SCH (08:57)
[2019-01-15] MEDS: ASPIRIN 81 MG CHEW TABLET PO SCH (08:58)
[2019-01-15] MEDS: CLOPIDOGREL 75 MG TAB PO SCH (08:58)
[2019-01-15] MEDS: LISINOPRIL 5 MG TAB PO SCH (08:58)
[2019-01-15] MEDS: ESCITALOPRAM OXALATE 10 MG TAB (LEXAPRO) PO SCH (08:58)
[2019-01-15] MEDS: DOCUSATE SODIUM 100 MG CAP PO SCH ×2 (08:58→20:10)
[2019-01-15] MEDS: VITAMIN D 1,000 INTERNATIONAL UNITS TABLET PO SCH (08:58)
--- NOTE | 2019-01-15 11:02 | IPNPDOC ---
Subjective Date Seen The patient was seen on 01/15/19. Subjective Chief Complaint/HPI No complaints this morning. Vision has recovered. Objective Physical Examination General Exam: Positive: Alert, Cooperative, No Acute Distress Eye Exam: Positive: PERRLA, Conjunctiva & lids normal, EOMI ENT Exam: Positive: Atraumatic, Mucous membr. moist/pink, Pharynx Normal Neck Exam: Positive: Supple; Negative: JVD, thyromegaly Chest Exam: Positive: Clear to auscultation, Normal air movement Heart Exam: Positive: Rate Normal, Regular Rhythm, Normal S1, Normal S2; Negative: Murmurs, Rubs Abdomen Exam: Positive: Normal bowel sounds, Soft; Negative: Tenderness, Hepatospenomegaly Extremity Exam: Positive: Normal pulses; Negative: Clubbing, Cyanosis, Edema Neuro Exam: Positive: Normal Speech, Normal Tone, Other (4/5 strength on the left upper and lower extremity, 5/5 on the right. ) Assessment /Plan Assessment Acute left medulla CVA - stroke in young work up sent from [facility] no reports available yet . She will be following up with Neurologist in [facility]. -Continue aspirin, Plavix, on statin -Blood pressure is elevated without prior diagnosis of hypertension -Monitor blood pressure to target systolic range less than 140 Elevated blood pressure -Without prior diagnosis of hypertension -Started on low-dose DAYANARA inhibitor given recent acute CVA Obesity -Has been discussed with patient. -Therapeutic lifestyle changes Nicotine dependence -Patient has been counseled DVT prophylaxis -Lovenox daily Plan/VTE VTE Prophylaxis Ordered?: Yes VS, I&O, 24H, Fishbone Vital Signs/I&O Vital Signs Date Time Temp Pulse Resp B/P (MAP) Pulse Ox O2 Delivery O2 Flow Rate FiO2 01/15/19 08:58 121/67 01/15/19 05:53 97.8 87 18 96 I&O- Last 24 Hours up to 6 AM 01/15/19 06:00 Intake Total 1460 ml Output Total 0 ml Balance 1460 ml Laboratory Data 24H LABS Laboratory Tests 2 01/15/19 06:49: Nucleated Red Blood Cells % (auto) 0.0 CBC/BMP Laboratory Tests 01/15/19 06:49 Red Blood Count 4.48, Mean Corpuscular Volume 88.6, Mean Corpuscular Hemoglobin 29.2, Mean Corpuscular Hemoglobin Concent 33.0, Red Cell Distribution Width 14.7 H JOSE KENT MD Jan 15, 2019 11:02
--- NOTE | 2019-01-15 11:13 | IPNPDOC ---
PM&R Progress Note DATE OF SERVICE: Jan 15, 2019 [employer] Progress Note Subjective: Patient seen in her room stating she continues to feel betetr and that her left arm paresthesias were relieved by stretching in therapy. She was tuaght how to do chin tucks and shoulder rolls. PHYSICAL EXAMINATION: VITAL SIGNS: Please see below. GENERAL: Pleasant and cooperative. No acute distress. HEENT: PERRL. Extraocular movements intact. Clear conjunctiva, no nystagmus, +left ptosis and miosis CARDIOVASCULAR: Regular rate and rhythm. No murmurs, rubs, or gallops LUNGS: Clear to auscultation bilaterally. No wheezes. No rhonchi ABDOMEN: Soft, nontender, nondistended. Positive bowel sounds. Normal active bowel sounds NEUROLOGICAL: Alert and oriented times three. Cranial nerves II through XII grossly intact. Sensation grossly intact except diminished to light touch left face in CNV1-3 distribution, left D1 and tip of D2, left lateral upper arm, left anterior thigh -no dysarthria, no aphasia -gait decreased step length, mildly ataxic EXTREMITIES: 5\5 strength bilateral upper extremities (no pronator drift) 5\5 strength right lower extremity 5/5 strength in left lower extremity +TTP cervical paraspinals, +trigger point with ocular radiation with palpation of bilateral superior nuchal ridge SKIN: intact ASSESSMENT:38-year-old F with no significant pmh who presents status post left lateral medullary infarct. PLAN: 1. Rehab: PT, OT, assess for DMEs, YARD RIGGER for cognition and swallow eval- ambulating well with quad-based cane and needing some assistance without an AD for unsteadiness, goal will be MOd with cane prior to discharge- room privileges today with cane 2. 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 Cardio: HLD and HTN- c/u meds, medicine consulted to follow 4. Resp: encourage incentive spirometry 5. GI ppx: protonix, optimize bowel meds 6. DVT ppx: lovenox 7. : monitor PVRs 8. Psych: c/u Lexapro for anxiety 9. Dispo: 01/18/19, quickly progressing towards goals Allergies Coded Allergies: Penicillins (Verified Allergy, Unknown, hives, 01/07/19) Vital Signs Vital Signs Date Time Temp Pulse Resp B/P (MAP) Pulse Ox O2 Delivery O2 Flow Rate FiO2 01/15/19 08:58 121/67 01/15/19 05:53 97.8 87 18 96 Laboratory Data CBC/BMP Laboratory Tests 01/15/19 06:49 Red Blood Count 4.48, Mean Corpuscular Volume 88.6, Mean Corpuscular Hemoglobin 29.2, Mean Corpuscular Hemoglobin Concent 33.0, Red Cell Distribution Width 14.7 H Labs 24H Laboratory Tests 2 01/15/19 06:49: Nucleated Red Blood Cells % (auto) 0.0 Current Medications Current Medications Current Medications Acetaminophen (Tylenol Tab) 650 mg Q4HP PRN PO MILD PAIN (PS 1-4) Last administered on 01/15/19at 08:57; Start 01/12/19 at 16:15 Al Hydrox/Mg Hydrox/Simethicone (Mylanta) 30 ml Q4HP PRN PO DYSPEPSIA; Start 01/12/19 at 16:15 Albuterol Sulfate (Proventil, Ventolin Hfa) 2 puff Q4HP PRN INH SHORTNESS OF BREATH; Start 01/12/19 at 16:15 Amlodipine Besylate (Norvasc) 2.5 mg DAILY PO ; Start 01/13/19 at 09:00; Stop 01/13/19 at 09:00; Status DC Aspirin (Aspirin Chewable) 81 mg DAILY PO Last administered on 01/15/19at 08:58; Start 01/13/19 at 09:00 Atorvastatin Calcium (Lipitor) 80 mg QHS PO Last administered on 01/14/19at 21:46; Start 01/12/19 at 21:00 Bisacodyl (Dulcolax Suppository) 10 mg DAILYPRN PRN [place] CONSTIPATION; Start 01/12/19 at 16:15 Clopidogrel Bisulfate (PLAVix) 75 mg DAILY@1000 PO Last administered on 01/15/19 08:58; Start 01/13/19 at 10:00 Docusate Sodium (Colace) 100 mg BID PO Last administered on 01/15/19 08:58; Start 01/12/19 at 21:00 Enoxaparin Sodium (Lovenox) 40 mg DAILY SC Last administered on 01/15/19 08:57; Start 01/13/19 at 09:00 Escitalopram Oxalate (Lexapro) 20 mg DAILY PO Last administered on 01/15/19 08:58; Start 01/13/19 at 09:00 Ferrous Gluconate (Fergon) 324 mg DAILY PO Last administered on 01/15/19 08:57; Start 01/13/19 at 09:00 Gabapentin (Neurontin) 200 mg QHS PO Last administered on 01/14/19 21:46; Start 01/12/19 at 21:00 Home Med (Med Rec Complete!) ASDIRECTED XX ; Start 01/12/19 at 15:15; Stop 01/12/19 at 15:15; Status DC Lidocaine (Lidoderm Patch) 1 patch DAILY TD Last administered on 01/15/19 08:55; Start 01/13/19 at 09:00 Lisinopril (Prinivil) 5 mg DAILY PO Last administered on 01/13/19 08:33; Start 01/13/19 at 09:00 Meclizine HCl (Antivert) 12.5 mg BID PO Last administered on 01/15/19 08:57; Start 01/14/19 at 21:00 Meclizine HCl (Antivert) 12.5 mg TID PO Last administered on 01/14/19 09:43; Start 01/12/19 at 21:00; Stop 01/14/19 at 12:57; Status DC Non-Formulary Medication ( See Comment Field Below ) REMOVE LIDODERM PATCH DAILY@21 XX Last administered on 01/14/19 21:00; Start 01/13/19 at 21:00 Pantoprazole Sodium (Protonix) 40 mg DAILY PO Last administered on 01/15/19at 08:57; Start 01/13/19 at 09:00 Senna (Senokot) 1 tab QHS PO Last administered on 01/14/19at 21:46; Start 01/12/19 at 21:00 Vitamin D (Vitamin D) 5,000 units DAILY PO Last administered on 01/15/19 08:58; Start 01/13/19 at 09:00 AARON MONTES MD Jan 15, 2019 11:13
[2019-01-15 14:00] VITALS: BP 127/64
[2019-01-15 20:00] VITALS: BP 125/89
[2019-01-15] MEDS: ATORVASTATIN 20 MG TAB PO SCH (20:10)
[2019-01-15] MEDS: SENNA 8.6 MG TAB (SENOKOT) PO SCH (20:11)
[2019-01-15] MEDS: GABAPENTIN 100 MG CAP PO SCH (20:11)
[2019-01-15] MEDS: **NOTE PATIENT COMMENT** MISC XX SCH (20:11)
[2019-01-16 06:00] VITALS: BP 127/56
[2019-01-16] MEDS: DOCUSATE SODIUM 100 MG CAP PO SCH ×2 (08:54→20:17)
[2019-01-16] MEDS: FERROUS GLUCONATE 324 MG TAB PO SCH (08:54)
[2019-01-16] MEDS: PANTOPRAZOLE 40MG TAB (PROTONIX) PO SCH (08:54)
[2019-01-16] MEDS: ENOXAPARIN 40 MG/0.4 ML SYRINGE (J1650) SC SCH (08:55)
[2019-01-16] MEDS: MECLIZINE 12.5 MG TAB PO SCH ×2 (08:55→20:16)
[2019-01-16] MEDS: ESCITALOPRAM OXALATE 10 MG TAB (LEXAPRO) PO SCH (08:55)
[2019-01-16] MEDS: CLOPIDOGREL 75 MG TAB PO SCH (08:55)
[2019-01-16] MEDS: VITAMIN D 1,000 INTERNATIONAL UNITS TABLET PO SCH (08:55)
[2019-01-16] MEDS: ASPIRIN 81 MG CHEW TABLET PO SCH (08:55)
[2019-01-16] MEDS: LISINOPRIL 5 MG TAB PO SCH (08:56)
[2019-01-16] MEDS: LIDOCAINE 5% (LIDODERM) PATCH TD SCH (08:56)
[2019-01-16 14:00] VITALS: BP 153/75
[2019-01-16 20:00] VITALS: BP 127/72
[2019-01-16] MEDS: ATORVASTATIN 20 MG TAB PO SCH (20:16)
[2019-01-16] MEDS: SENNA 8.6 MG TAB (SENOKOT) PO SCH (20:17)
[2019-01-16] MEDS: GABAPENTIN 100 MG CAP PO SCH (20:17)
[2019-01-16] MEDS: **NOTE PATIENT COMMENT** MISC XX SCH (20:17)
[2019-01-17 06:00] VITALS: BP 125/58
[2019-01-17] MEDS: LIDOCAINE 5% (LIDODERM) PATCH TD SCH (09:00)
[2019-01-17] MEDS: LISINOPRIL 5 MG TAB PO SCH (09:00)
[2019-01-17] MEDS: ENOXAPARIN 40 MG/0.4 ML SYRINGE (J1650) SC SCH (09:34)
[2019-01-17] MEDS: FERROUS GLUCONATE 324 MG TAB PO SCH (09:35)
[2019-01-17] MEDS: CLOPIDOGREL 75 MG TAB PO SCH (09:35)
[2019-01-17] MEDS: ASPIRIN 81 MG CHEW TABLET PO SCH (09:35)
[2019-01-17] MEDS: PANTOPRAZOLE 40MG TAB (PROTONIX) PO SCH (09:35)
[2019-01-17] MEDS: MECLIZINE 12.5 MG TAB PO SCH ×2 (09:35→20:07)
[2019-01-17] MEDS: VITAMIN D 1,000 INTERNATIONAL UNITS TABLET PO SCH (09:35)
[2019-01-17] MEDS: DOCUSATE SODIUM 100 MG CAP PO SCH ×2 (09:35→20:07)
[2019-01-17] MEDS: ESCITALOPRAM OXALATE 10 MG TAB (LEXAPRO) PO SCH (09:37)
--- NOTE | 2019-01-17 11:15 | IPNPDOC ---
Subjective Date Seen The patient was seen on 01/17/19. Subjective Chief Complaint/HPI stroke Events since last encounter Denies c/o. passed PT. plans for DC home in am. Skin: Denies: Rash, Lesions, Breakdown Pulmonary: Denies: Dyspnea, Cough Cardiovascular: Denies: Chest Pain, Palpitations, Orthopnea, Paroxysmal Noc. Dyspnea, Lt Headedness Gastrointestinal: Denies: Nausea, Vomiting, Abdominal Pain, Diarrhea, Constipation Genitourinary: Denies: Dysuria, Frequency, Incontinence, Retention Neurological: Denies: Weakness, Numbness, Change in speech, Confusion Objective Physical Examination General Exam: Positive: Alert, Cooperative, No Acute Distress Eye Exam: Positive: PERRLA, Conjunctiva & lids normal, EOMI ENT Exam: Positive: Atraumatic, Mucous membr. moist/pink, Pharynx Normal Neck Exam: Positive: Supple; Negative: JVD, thyromegaly Chest Exam: Positive: Clear to auscultation, Normal air movement Heart Exam: Positive: Rate Normal, Regular Rhythm, Normal S1, Normal S2; Negative: Murmurs, Rubs Abdomen Exam: Positive: Normal bowel sounds, Soft; Negative: Tenderness, Hepatospenomegaly Extremity Exam: Positive: Normal pulses; Negative: Clubbing, Cyanosis, Edema Neuro Exam: Positive: Normal Speech, Normal Tone, Other (4/5 strength on the left upper and lower extremity, 5/5 on the right. ) Assessment /Plan Problems (1) Stroke Status: Acute Problem Text: Acute left medulla CVA - stroke in young work up sent from [facility] no reports available yet . She will be following up with Neurologist in [facility]. -Continue aspirin, Plavix, on statin -Blood pressure is elevated without prior diagnosis of hypertension -Monitor blood pressure to target systolic range less than 140 Elevated blood pressure -Without prior diagnosis of hypertension -Started on low-dose DAYANARA inhibitor given recent acute CVA Obesity -Has been discussed with patient. -Therapeutic lifestyle changes Nicotine dependence -Patient has been counseled DVT prophylaxis -Lovenox daily (2) HLD (hyperlipidemia) Plan/VTE VTE Prophylaxis Ordered?: Yes VS, I&O, 24H, Fishbone Vital Signs/I&O Vital Signs Date Time Temp Pulse Resp B/P (MAP) Pulse Ox O2 Delivery O2 Flow Rate FiO2 01/17/19 09:00 125/58 01/17/19 06:00 97.2 62 17 94 I&O- Last 24 Hours up to 6 AM 01/17/19 06:00 Intake Total 1440 ml Balance 1440 ml Rain Londono [facility] Jan 17, 2019 11:15
[2019-01-17 14:00] VITALS: BP 127/59
[2019-01-17 20:00] VITALS: BP 129/77
[2019-01-17] MEDS: SENNA 8.6 MG TAB (SENOKOT) PO SCH (20:07)
[2019-01-17] MEDS: ATORVASTATIN 20 MG TAB PO SCH (20:07)
[2019-01-17] MEDS: GABAPENTIN 100 MG CAP PO SCH (20:07)
[2019-01-17] MEDS: **NOTE PATIENT COMMENT** MISC XX SCH (20:08)
[2019-01-18 06:00] VITALS: BP 110/67
[2019-01-18 06:18] LABS: HEMATOCRIT 38.1 % (36.0-47.0); HEMOGLOBIN 12.5 g/dl (12.0-15.5); MEAN CORPUSCULAR HEMOGLOBIN 29.2 pg (27.0-33.0); MEAN CORPUSCULAR HGB CONC 32.8 g/dl (32.0-36.5); PLATELET COUNT, AUTOMATED 301 10^3/uL (150-450); RED BLOOD COUNT 4.28 10^6/uL (4.00-5.40); WHITE BLOOD COUNT 8.3 10^3/uL (4.0-10.0)
[2019-01-18 09:00] VITALS: BP 110/67
[2019-01-18] MEDS: LISINOPRIL 5 MG TAB PO SCH (09:00)
[2019-01-18] MEDS: DOCUSATE SODIUM 100 MG CAP PO SCH (09:00)
[2019-01-18] MEDS: LIDOCAINE 5% (LIDODERM) PATCH TD SCH (09:00)
[2019-01-18] MEDS: ASPIRIN 81 MG CHEW TABLET PO SCH (09:20)
[2019-01-18] MEDS: MECLIZINE 12.5 MG TAB PO SCH (09:21)
[2019-01-18] MEDS: ESCITALOPRAM OXALATE 10 MG TAB (LEXAPRO) PO SCH (09:21)
[2019-01-18] MEDS: VITAMIN D 1,000 INTERNATIONAL UNITS TABLET PO SCH (09:21)
[2019-01-18] MEDS: FERROUS GLUCONATE 324 MG TAB PO SCH (09:22)
[2019-01-18] MEDS: CLOPIDOGREL 75 MG TAB PO SCH (09:22)
[2019-01-18] MEDS: ENOXAPARIN 40 MG/0.4 ML SYRINGE (J1650) SC SCH (09:22)
[2019-01-18] MEDS: PANTOPRAZOLE 40MG TAB (PROTONIX) PO SCH (09:22)
== END 2019-01-18 13:35 | disposition home or self-care (01) | DRG 57 ==
LOC: M PM&R 14:20
PROVIDERS: ADMIT Physical Medicine & Rehabilitation; ATTEND Physical Medicine & Rehabilitation
DX: I69.352 Hemiplegia and hemiparesis following cerebral infarction affecting left dominant side (principal); I69.322 Dysarthria following cerebral infarction; H53.2 Diplopia; E78.5 Hyperlipidemia, unspecified; F17.210 Nicotine dependence, cigarettes, uncomplicated; E66.9 Obesity, unspecified; Z88.0 Allergy status to penicillin; Z79.899 Other long term (current) drug therapy; Z79.82 Long term (current) use of aspirin; I10 Essential (primary) hypertension; R42 Dizziness and giddiness

== ENCOUNTER 2019-02-04 14:30 | Outpatient (RCR) | payer OTHER ==
[~2019-02-04 14:30] MED LIST changes: +ACET1TAB55 PO; +ASPI81CH8 PO; +ASPI81TA85 PO; +ATOR1TAB21 PO; +CLOP75TA2 PO; +COLA100C5 PO; +D3 U5000 PO; +ENOX40IN3 SC; +ESCI10TA2 PO; +ESCI20TA PO; +GABA-1171 PO; +GNP8.6TA PO; +LISI-542 PO; +MECL12.575 PO; +MIRA3350 PO; +ONDA4TAB6 PO; +PANT40TA3 PO; +PLAV1TAB2 PO
== END 2019-02-07 ==
LOC: M PT 14:30
PROVIDERS: ATTEND Family Medicine
DX: I63.9 Cerebral infarction, unspecified (principal)

== ENCOUNTER 2019-02-22 14:30 | Outpatient (RCR) | payer OTHER | END 2019-03-10 | LOC: M PT 14:30 | PROVIDERS: ATTEND Family Medicine | DX: Z51.89 Encounter for other specified aftercare (principal); I63.9 Cerebral infarction, unspecified ==

== ENCOUNTER → 2020-01-07 | Outpatient (REF) | payer OTHER ==
[~2020-01-07] MED LIST changes: -MECL12.575 PO; +MECL12.589 PO
[2020-01-07 18:16] LABS: HEMATOCRIT 39.8 % (36.0-47.0); HEMOGLOBIN 12.6 g/dl (12.0-15.5); MEAN CORPUSCULAR HEMOGLOBIN 28.3 pg (27.0-33.0); MEAN CORPUSCULAR HGB CONC 31.7 g/dl (32.0-36.5); MEAN CORPUSCULAR VOLUME 89.2 fl (80.0-96.0); PLATELET COUNT, AUTOMATED 422 10^3/uL (150-450); RED BLOOD COUNT 4.46 10^6/uL (4.00-5.40); WHITE BLOOD COUNT 9.6 10^3/uL (4.0-10.0)
[2020-01-07 18:46] LABS: BLOOD UREA NITROGEN 9 MG/DL (7-18); CALCIUM LEVEL 8.5 MG/DL (8.5-10.1); CARBON DIOXIDE LEVEL 28 MEQ/L (21-32); CHLORIDE LEVEL 107 MEQ/L (98-107); CREATININE FOR GFR 0.69 MG/DL (0.55-1.30); GLOMERULAR FILTRATION RATE > 60.0 (>58); GLUCOSE, FASTING 79 MG/DL (70-100); SODIUM LEVEL 139 MEQ/L (136-145)
== END ==
LOC: M LABDRWAD 16:10
PROVIDERS: ATTEND Physician Assistant
DX: Q21.1 Atrial septal defect (principal)

== ENCOUNTER → 2020-01-09 | Outpatient (CLI) | payer OTHER | LOC: M LABSMTC 10:00 | PROVIDERS: ATTEND Physician Assistant | DX: Z03.818 Encounter for observation for suspected exposure to other biological agents ruled out (principal); Z11.59 Encounter for screening for other viral diseases | CPT/HCPCS: C9803; U0003 ==

== ENCOUNTER 2021-09-25 17:55 | Emergency (ER) | payer OTHER ==
[~2021-09-25] VITALS: Ht 157.5 cm; Wt 90.9 kg
[2021-09-25 17:55] VITALS: BP 133/72
[~2021-09-25 17:55] MED LIST changes: -ASPI81TA85 PO; +ASPI81TA86 PO; +BUPR150T12; -BUPR150T3; +ESCI10TA16 PO; -ESCI10TA2 PO; -ESCI20TA; -ESCI20TA PO; +ESCI20TA16; +ESCI20TA16 PO; -GNP8.6TA PO; -LISI-542 PO; +LISI5TAB11 PO; +MECL-136 PO; -MECL12.589 PO; +PANT40TA29 PO; -PANT40TA3 PO; +SENN-111 PO
[2021-09-25] MEDS ORDERED: PERCOCET 5MG/325MG TAB PO ONE (21:30)
[2021-09-25] MEDS ORDERED: PERC5TAB12 PO (21:41)
== END 2021-09-25 22:03 | disposition home or self-care (01) ==
LOC: M ED 17:55
DX: S82.141A Displaced bicondylar fracture of right tibia, initial encounter for closed fracture (principal); W00.9XXA Unspecified fall due to ice and snow, initial encounter; Y92.9 Unspecified place or not applicable; Y93.9 Activity, unspecified; Y99.9 Unspecified external cause status; I10 Essential (primary) hypertension; E78.5 Hyperlipidemia, unspecified; Z87.891 Personal history of nicotine dependence; Z87.442 Personal history of urinary calculi; Z79.82 Long term (current) use of aspirin; Z79.899 Other long term (current) drug therapy; Z88.0 Allergy status to penicillin

== ENCOUNTER → 2021-10-18 | Outpatient (CLI) | payer OTHER ==
[~2021-10-18] MED LIST changes: +PERC5TAB12 PO
== END ==
LOC: M SOG 08:03
PROVIDERS: ATTEND Physician Assistant
DX: S82.121D Displaced fracture of lateral condyle of right tibia, subsequent encounter for closed fracture with routine healing (principal); M25.551 Pain in right hip

== ENCOUNTER → 2021-11-08 | Outpatient (CLI) | payer OTHER | LOC: M SOG 08:01 | PROVIDERS: ATTEND Physician Assistant | DX: S82.121A Displaced fracture of lateral condyle of right tibia, initial encounter for closed fracture (principal); X58.XXXA Exposure to other specified factors, initial encounter; Y92.9 Unspecified place or not applicable; Y93.9 Activity, unspecified; Y99.9 Unspecified external cause status ==

== ENCOUNTER → 2022-07-10 | Outpatient (REF) | payer OTHER ==
[~2022-07-10] MED LIST changes: +CLOP75TA99 PO; -PLAV1TAB2 PO
[2022-07-10 14:52] LABS: BASO # 0.1 10^3/uL (0.0-0.2); BASO % 0.7 % (0.0-1.0); EOS # 0.1 10^3/uL (0.0-0.5); EOS % 1.4 % (0.0-3.0); HEMATOCRIT 45.3 % (36.0-47.0); HEMOGLOBIN 14.7 g/dl (12.0-15.5); LYMPH # 2.7 10^3/uL (1.5-5.0); LYMPH % 38.1 % (24.0-44.0); MEAN CORPUSCULAR HEMOGLOBIN 29.3 pg (27.0-33.0); MEAN CORPUSCULAR HGB CONC 32.5 g/dl (32.0-36.5); MEAN CORPUSCULAR VOLUME 90.2 fl (80.0-96.0); MONO # 0.5 10^3/uL (0.0-0.8); MONO % 6.7 % (2.0-8.0); NEUTROPHILS # 3.7 10^3/uL (1.5-8.5); PLATELET COUNT, AUTOMATED 381 10^3/uL (150-450); RED BLOOD COUNT 5.02 10^6/uL (4.00-5.40)
[2022-07-10 16:00] LABS: ALBUMIN 3.4 G/DL (3.2-5.2); ALKALINE PHOSPHATASE 67 U/L (46-116); ALT/SGPT 17 U/L (7.0-40); AST/SGOT 19 U/L (<34); BILIRUBIN,TOTAL 0.4 MG/DL (0.3-1.2); BLOOD UREA NITROGEN 10 MG/DL (9-23); CALCIUM LEVEL 8.8 MG/DL (8.5-10.1); CARBON DIOXIDE LEVEL 25 MMOL/L (20-31); CHLORIDE LEVEL 105 MMOL/L (98-107); CHOLESTEROL LEVEL 202 MG/DL (<200); CHOLESTEROL RISK RATIO 3.84 (<5); CREATININE FOR GFR 0.69 MG/DL (0.55-1.30); GLOMERULAR FILTRATION RATE > 60.0 (>58); GLUCOSE, FASTING 89 MG/DL (60-100); HDL CHOLESTEROL 52.6 MG/DL (>40); LDL CHOLESTEROL 134.4 MG/DL (<100); NON-HDL-C 149 MG/DL; POTASSIUM SERUM 4.8 MMOL/L (3.5-5.1); SODIUM LEVEL 137 MMOL/L (136-145); TOTAL PROTEIN 6.9 G/DL (5.7-8.2); TRIGLYCERIDES LEVEL 75 MG/DL (<150)
[2022-07-10 16:04] LABS: TOTAL 25(OH) VITAMIN D 26.8 NG/ML (20.0-100.0)
[2022-07-10 16:06] LABS: THYROID STIMULATING HORMONE 4.469 uIU/ML (0.55-4.78)
[2022-07-10 16:07] LABS: FREE T4 0.98 NG/DL (0.89-1.76)
[2022-07-10 23:06] LABS: HEMOGLOBIN A1c 5.2 % (4.0-6.0)
== END ==
LOC: M LABDRWAD 12:54
PROVIDERS: ATTEND Physician Assistant
DX: Z13.220 Encounter for screening for lipoid disorders (principal); Z13.29 Encounter for screening for other suspected endocrine disorder

== ENCOUNTER → 2023-01-29 | Outpatient (REF) | payer OTHER ==
[~2023-01-29] MED LIST changes: -SENN-111 PO; +SENN-188 PO
== END ==
LOC: M LAB REF 17:02
PROVIDERS: ATTEND Physician Assistant
DX: N21.9 Calculus of lower urinary tract, unspecified (principal)

== ENCOUNTER → 2023-02-06 | Outpatient (CLI) | payer OTHER ==
[~2023-02-06] MED LIST changes: +ECOT81TA5 PO; +LEXA1TAB2 PO; +PYRI1TAB5 PO
[2023-02-06 15:22] LABS: BACTERIA, URINE AUTO 1+ (NEGATIVE); MUCUS, URINE SMALL (NEGATIVE); RBC, URINE AUTO 48 /HPF (0-3); SQUAMOUS EPITHELIAL CELL UR AU 6 /HPF (0-6); WBC, URINE AUTO 121 /HPF (0-3)
== END ==
LOC: M RAD 11:15
PROVIDERS: ATTEND Specialist
DX: N20.1 Calculus of ureter (principal)
CPT/HCPCS: 76775; 81015; 87086; G0463

== ENCOUNTER → 2023-02-07 | Outpatient (REF) | payer OTHER | LOC: M LABSMT 14:46 | PROVIDERS: ATTEND Urology | DX: Z53.9 Procedure and treatment not carried out, unspecified reason (principal) ==

== ENCOUNTER → 2023-02-12 | Outpatient (CLI) | payer OTHER ==
[~2023-02-12] MED LIST changes: +MACR100C43 PO
[2023-02-12 12:13] LABS: HEMATOCRIT 41.4 % (36.0-47.0); HEMOGLOBIN 13.5 g/dl (12.0-15.5); MEAN CORPUSCULAR HEMOGLOBIN 29.2 pg (27.0-33.0); MEAN CORPUSCULAR HGB CONC 32.6 g/dl (32.0-36.5); MEAN CORPUSCULAR VOLUME 89.4 fl (80.0-96.0); PLATELET COUNT, AUTOMATED 396 10^3/uL (150-450); RED BLOOD COUNT 4.63 10^6/uL (4.00-5.40); WHITE BLOOD COUNT 10.4 10^3/uL (4.0-10.0)
[2023-02-12 12:32] LABS: ALBUMIN 3.4 G/DL (3.2-5.2); ALKALINE PHOSPHATASE 61 U/L (46-116); ALT/SGPT 10 U/L (7.0-40); AST/SGOT 14 U/L (<34); BILIRUBIN,TOTAL 0.4 MG/DL (0.3-1.2); BLOOD UREA NITROGEN 10 MG/DL (9-23); CALCIUM LEVEL 8.8 MG/DL (8.5-10.1); CARBON DIOXIDE LEVEL 27 MMOL/L (20-31); CHLORIDE LEVEL 108 MMOL/L (98-107); CREATININE FOR GFR 0.74 MG/DL (0.55-1.30); GLOMERULAR FILTRATION RATE > 60.0 (>58); GLUCOSE, FASTING 84 MG/DL (60-100); SODIUM LEVEL 139 MMOL/L (136-145); TOTAL PROTEIN 6.4 G/DL (5.7-8.2)
== END ==
LOC: M RAD 11:13
PROVIDERS: ATTEND Urology
DX: N21.0 Calculus in bladder (principal)

== ENCOUNTER 2023-02-14 12:00 | Day surgery (SDC) | payer OTHER ==
[~2023-02-14] VITALS: Ht 157.5 cm; Wt 83.5 kg
[~2023-02-14 12:00] MED LIST changes: +ISOVUE-300 61% 100ML VIAL As Ordered ONE; -MACR100C43 PO; +ceFAZolin SOD 2 GM in IV 1 EA IV ONE
[2023-02-14] MEDS ORDERED: LR 1,000 ML IV SCH ×2 (12:45→17:30)
[2023-02-14] MEDS ORDERED: MIDAZOLAM INJ 2MG/2ML VIAL As Ordered ONE (14:38)
[2023-02-14] MEDS ORDERED: fentaNYL 250 MCG/5 ML INJECTION As Ordered ONE (14:38)
[2023-02-14] MEDS ORDERED: ONDANSETRON 4MG 2ML VIAL As Ordered ONE (14:38)
[2023-02-14] MEDS ORDERED: LIDOCAINE 2% 100MG/5ML SDV (FOR ANES.) As Ordered ONE (14:39)
[2023-02-14] MEDS ORDERED: ACETAMINOPHEN 1000MG 100ML IV BAG As Ordered ONE (14:39)
[2023-02-14] MEDS ORDERED: propofoL 200 MG/20 ML VIAL As Ordered ONE (14:39)
[2023-02-14] MEDS ORDERED: PYRI1TAB5 PO (17:27)
[2023-02-14] MEDS ORDERED: MACR100C43 PO (17:27)
[2023-02-14] MEDS ORDERED: fentaNYL 100 MCG/2 ML INJECTION IV PRN (17:30)
[2023-02-14] MEDS ORDERED: ONDANSETRON 4MG 2ML VIAL IV PRN (17:30)
[2023-02-14] MEDS ORDERED: oxyCODONE 5MG TAB PO PRN (17:30)
[2023-02-14] MEDS: HYDROMORPHONE HCL 0.5 MG/ 0.5 ML SYRINGE IV PRN ×2 (17:52→17:58)
[2023-02-14 18:15] VITALS: BP 116/60; TEMP 99.3; O2SAT 97
== END 2023-02-14 18:35 | disposition home or self-care (01) ==
LOC: M SDC 12:00
PROVIDERS: ATTEND Urology
DX: N21.0 Calculus in bladder (principal); F41.9 Anxiety disorder, unspecified; F32.A Depression, unspecified; Z88.0 Allergy status to penicillin; Z86.73 Personal history of transient ischemic attack (TIA), and cerebral infarction without residual deficits; Z79.899 Other long term (current) drug therapy
CPT/HCPCS: 52317; 82365; C1769; J0131; J0690; J1100; J1170; J2250; J2405; J3010; Q9967

== ENCOUNTER → 2023-02-20 | Outpatient (CLI) | payer OTHER ==
[~2023-02-20] MED LIST changes: -ISOVUE-300 61% 100ML VIAL As Ordered ONE; +MACR100C43 PO; -ceFAZolin SOD 2 GM in IV 1 EA IV ONE
== END ==
LOC: M RAD 08:46
PROVIDERS: ATTEND Physician Assistant
DX: R91.1 Solitary pulmonary nodule (principal)

== ENCOUNTER → 2024-08-10 | Outpatient (REF) | payer OTHER ==
[~2024-08-10] MED LIST changes: +ONDA-282 PO; -ONDA4TAB6 PO
== END ==
LOC: M LAB REF 13:36
PROVIDERS: ATTEND Physician Assistant Medical
DX: B34.9 Viral infection, unspecified (principal)

== ENCOUNTER 2025-06-29 19:24 | Emergency (ER) | payer OTHER ==
[~2025-06-29] VITALS: Ht 157.5 cm; Wt 70.3 kg
[2025-06-29] MEDS ORDERED: ISOVUE-370 76% 100 ML VIAL As Ordered ONE (22:53)
[2025-06-29 22:54] LABS: BASO # 0.1 10^3/uL (0.0-0.2); BASO % 0.7 % (0.0-1.0); EOS # 0.1 10^3/uL (0.0-0.5); EOS % 1.1 % (0.0-3.0); INR 0.99; LYMPH # 3.5 10^3/uL (1.5-5.0); LYMPH % 32.5 % (24.0-44.0); MONO # 0.7 10^3/uL (0.0-0.8); MONO % 6.8 % (2.0-8.0); NEUTROPHILS # 6.3 10^3/uL (1.5-8.5); NEUTROPHILS % 58.5 % (36.0-66.0); PLATELET COUNT, AUTOMATED 328 10^3/uL (150-450)
[2025-06-29 23:00] LABS: C REACTIVE PROTEIN QUANTITATIV < 0.50 MG/DL (<1.0); CALCIUM LEVEL 8.4 MG/DL (8.5-10.1); CARBON DIOXIDE LEVEL 28 MMOL/L (20-31); CHLORIDE LEVEL 107 MMOL/L (98-107); CK-MB VALUE MASS < 1.0 NG/ML (<3.6); CREATININE FOR GFR 1.26 MG/DL (0.55-1.30); GLOMERULAR FILTRATION RATE 53.3 (>58); POTASSIUM SERUM 4.2 MMOL/L (3.5-5.1); SODIUM LEVEL 142 MMOL/L (136-145)
[2025-06-29 23:03] LABS: CPK CREATINE PHOSPHOKINASE 37 U/L (34-145)
[2025-06-30 01:25] VITALS: BP 123/59; TEMP 97.7; O2SAT 95
== END 2025-06-30 01:25 | disposition left against medical advice (07) ==
LOC: M ED 19:24
DX: M21.372 Foot drop, left foot (principal); M51.26 Other intervertebral disc displacement, lumbar region; M48.061 Spinal stenosis, lumbar region without neurogenic claudication; M54.18 Radiculopathy, sacral and sacrococcygeal region; Z53.9 Procedure and treatment not carried out, unspecified reason; E78.5 Hyperlipidemia, unspecified; I95.9 Hypotension, unspecified; F41.9 Anxiety disorder, unspecified; F32.A Depression, unspecified; M54.12 Radiculopathy, cervical region; Z86.73 Personal history of transient ischemic attack (TIA), and cerebral infarction without residual deficits; Z88.0 Allergy status to penicillin
CPT/HCPCS: 70450; 70496; 70498; 72131; 80047; 80048; 82550; 82553; 84484; 85025; 85610; 85652; 85730; 86140; 86850; 86900; 86901; 93005; 93041; 94760; 99285; Q9967